=== PATIENT | female | born 1970 | race Hispanic/Latino ===

== ENCOUNTER 2018-11-06 16:49 | Observation (INO) ==
[2018-11-06] MEDS ORDERED: ASPIRIN PO ONE (17:04)
[2018-11-06 17:45] LABS: URINE SOURCE CLEAN CATCH
--- NOTE | 2018-11-06 17:47 | Diag Imaging Result Doc PS360 ---
CHEST-PORTABLE - 11/06/2018 INDICATION: cp COMPARISON: 08/26/2017 FINDINGS: The lungs are normally expanded and clear. Heart size and mediastinal contours are normal. No pneumothorax or pleural effusion. IMPRESSION: Negative exam. Electronically signed by Izaiah Mandujano 11/06/2018 5:45 PM
--- NOTE | 2018-11-06 17:47 | PROVIDER DOCUMENTATION ---
HPI-Female /OB/Breast - General Chief Complaint: Female Stated Complaint: ON PERIOD FOR 3 WEEKS Time Seen by Provider: 11/06/18 17:27 Source: reports: patient Allergies/Adverse Reactions: Patient Allergies Allergy/AdvReac Type Severity Reaction Status Date / Time No Known Allergies Allergy Verified 11/06/18 17:40 Home Medications: Home Medication List Medication Instructions Recorded Confirmed Last Taken Type Amlodipine [Norvasc] 10 mg PO DAILY 08/26/17 11/06/18 Unknown History Iron Carbonyl/Ascorbic Acid 1 each PO BID #60 tablet 08/27/17 11/06/18 Unknown Rx [Icar-C] - History of Present Illness-Female /OB Nature of Presenting Problem: Patient is a 48 year old female with history of HTN and irregular perio ds who presents with persistent vaginal bleeding for past 3 weeks. Patient reports using 2-3 pads per day. Patient also reports intermittent vague substernal chest pain since yesterday. Currently chest pain free. Last chest pain was this am which lasted several seconds. Denies history of CAD. Does patient report she is ?: No Quality of Pain: reports: none Onset/Duration: reports: other (3 weeks) Context/Activities at Onset: reports: none Vaginal Symptoms: reports: abnormal bleeding, passing clots/tissue Vaginal Bleeding Amount: Medium/Moderate Urinary Symptoms: reports: no symptoms Similar Symptoms Previously?: Yes Recently seen or treated by another doctor?: No - LMP/ History Menstrual Status: irregular Review of Systems - Adult - REVIEW OF SYSTEMS - ADULT Constitutional: denies: chills, fever Eyes: reports: no symptoms reported Ears, Nose, Mouth & Throat: denies: throat pain Cardiovascular: reports: see HPI Respiratory: reports: shortness of breath Gastrointestinal: denies: abdominal pain, nausea, vomiting Genitourinary: reports: see HPI, other (vaginal bleeding) Musculoskeletal: reports: no symptoms reported Integumentary: reports: no symptoms reported Neurological: reports: no symptoms reported Psychiatric: reports: no symptoms reported Endocrine: reports: no symptoms reported Hematologic/Lymphatic: reports: see HPI. denies: blood clots, easy bruising, low blood count, transfusions Allergic/Immunologic: reports: no symptoms reported All Other Systems: Reviewed and Negative Past History - Adult - PAST MEDICAL HISTORY-ADULT Review of Records: reports: Old Records Reviewed, Nursing Assessment Review, Medications Reviewed, Social history reviewed & non-contributory. Major Childhood Illnesses: reports: denies history Cardiovascular: reports: HTN. denies: CAD Gastrointestinal: reports: denies history Genitourinary: reports: denies history Musculoskeletal: reports: denies history Neurological: reports: denies history Psychiatric: reports: anxiety Endocrine/Immune: reports: denies history Other Conditions: reports: denies history - PRIOR SURGERIES/PROCEDURES Surgical/Procedure History: reports: none - IMMUNIZATION STATUS Childhood Immunizations: See Nurse Assessment Flu Vaccine: See Nurse Assessment - FAMILY HISTORY Family History: reviewed, not pertinent - SOCIAL HISTORY Smoking: denies Substance Use: denies Alcohol Use Frequency: occasionally Physical Exam-General - PHYSICAL EXAM-ADULT Initial Vital Signs Reviewed: Yes - CONSTITUTIONAL General Appearance: alert, other (appears pale, nondiaphoretic) - EYES Eyes: other (clear, pale mucosa) - HEAD, EARS, NOSE, MOUTH & THROAT HENMT: moist mucous membranes, normal ENT inspection - NECK Neck: non-tender, full range of motion, supple - RESPIRATORY Respiratory: chest non-tender, lungs clear, normal breath sounds, no pleuratic chest pain, no respiratory distress - CARDIOVASCULAR Cardiovascular: regular rate, rhythm - GASTROINTESTINAL (ABDOMEN) Abdominal Exam: normal bowel sounds, non tender, soft - GENITOURINARY Female Genitalia/Pelvic Exam: external exam normal, other (no active bleeding) - MUSCULOSKELETAL Back Exam: normal inspection, no CVA tenderness Extremity: normal range of motion, non-tender Peripheral Pulses: radial (R): 2+, radial (L): 2+ - SKIN Integumentary: normal turgor, warm/dry, pallor - NEUROLOGIC Neurologic: grossly normal, no motor/sensory deficits - PSYCHIATRIC Psych/Mental Status: anxious Progress - PLAN OF CARE/RESULTS Progress/Plan/Lab Results: Vital Signs - 8 hr 11/06/18 17:02 Temperature 98.0 F Pulse Rate 87 Respiratory Rate 18 Blood Pressure 130/68 O2 Sat by Pulse Oximetry 100 Bedside Urine ED: Urine Bedside Start: 11/06/18 17:05 Freq: ORDERED Status: Active Protocol: Activity Type Activity Date Activity User E-Sign Co-Sign Detail Recorded Client Recorded Date Recorded By Document 11/06/18 17:35 [id number] 11/06/18 17:36 [id number] 11/06/18 17:35 Point of Care [Bedside Point of Care] -Lot # [id number] - Results Negative -Control Line Visible? Yes Laboratory Results - last 24 hr 11/06/18 11/06/18 11/06/18 17:20 17:20 17:20 WBC 6.55 RBC 2.74 L Hgb 3.9 L* Hct 15.0 L MCV 54.7 L MCH 14.2 L MCHC 26.0 L RDW Std Deviation 21.3 H Plt Count 488 H MPV 9.1 Immature Gran % (Auto) 0.0 Neut % (Auto) 58.6 Lymph % (Auto) 30.2 [place] % (Auto) 9.2 Eos % (Auto) 1.2 Baso % (Auto) 0.8 Immature Gran # (Auto) 0.00 Neut # (Auto) 3.84 Lymph # (Auto) 1.98 [place] # (Auto) 0.60 H Eos # (Auto) 0.08 Baso # (Auto) 0.05 Segmented Neutrophils Not Reportable PT INR PTT (Actin FS) Sodium 134 L Potassium 3.5 Chloride 101 Carbon Dioxide 22 L Anion Gap 11 BUN 11 Creatinine 0.6 Estimated GFR/1.73 m2 > 60 BUN/Creatinine Ratio 18 Glucose 144 H Calculated Osmolality 270 Calcium 8.3 L Total Bilirubin 0.40 AST 18 ALT 12 Alkaline Phosphatase 83 Creatine Kinase 202 H Creatine Kinase Index 2.9 H CK-MB (CK-2) 5.82 H Troponin T Fwg-U-Yspgibrgryy Pept 95 Total Protein 7.2 Albumin 3.7 Globulin 4.0 Albumin/Globulin Ratio 1.0 Urine Source Urine Color Urine Clarity Urine pH Ur Specific [place] Urine Protein Urine Ketones Urine Blood Urine Nitrite Urine Bilirubin Urine Urobilinogen Urine WBC Urine Glucose 11/06/18 11/06/18 11/06/18 17:20 17:20 17:31 WBC RBC Hgb Hct MCV MCH MCHC RDW Std Deviation Plt Count MPV Immature Gran % (Auto) Neut % (Auto) Lymph % (Auto) [place] % (Auto) Eos % (Auto) Baso % (Auto) Immature Gran # (Auto) Neut # (Auto) Lymph # (Auto) [place] # (Auto) Eos # (Auto) Baso # (Auto) Segmented Neutrophils PT 14.1 INR 1.04 PTT (Actin FS) 31.1 Sodium Potassium Chloride Carbon Dioxide Anion Gap BUN Creatinine Estimated GFR/1.73 m2 BUN/Creatinine Ratio Glucose Calculated Osmolality Calcium Total Bilirubin AST ALT Alkaline Phosphatase Creatine Kinase Creatine Kinase Index CK-MB (CK-2) Troponin T < 0.010 Voq-H-Tftobjmgldk Pept Total Protein Albumin Globulin Albumin/Globulin Ratio Urine Source CLEAN CATCH Urine Color YELLOW Urine Clarity CLEAR Urine pH 6.5 Ur Specific [place] 1.005 Urine Protein NEGATIVE Urine Ketones NEGATIVE Urine Blood 4+ Urine Nitrite NEGATIVE Urine Bilirubin NEGATIVE Urine Urobilinogen NORMAL Urine WBC NEGATIVE Urine Glucose NEGATIVE Orders Category Date Time Status Admit - [facility] Routine AdmDCTranf 11/06/18 18:24 Active Activity - Strict Bedrest ORDERED Care 11/06/18 18:24 Active Cardiac Monitoring DIRECTED Care 11/06/18 17:04 Completed Misc. NRSG Communication Order DIRECTED Care 11/06/18 18:28 Active Orthostatic Vital Signs NOW Care 11/06/18 18:42 Active Orthostatic Vital Signs Q12-HR ASSESS Care 11/06/18 18:42 Active Resuscitation Status Routine Care 11/06/18 18:24 Ordered SCD/ZOEY Application [Apply Mechanical Device] [QM] Care 11/06/18 18:47 Active ORDERED Transfuse .Give-Transfuse Care 11/06/18 18:29 Active UA [ED: Urine Bedside] ORDERED Care 11/06/18 17:05 Active Vital Signs Order Q 4-HR ASSESS Care 11/06/18 18:24 Active Z-Document. for Tele Applied ORDERED Care 11/06/18 18:27 Active NPO Diet 11/06/18 18:25 Active CHEST-PORTABLE [RAD] Stat Exams 11/06/18 17:29 Completed US TRANSVAGINAL NON-OB [US] Stat Exams 11/06/18 18:35 Ordered CBC WITH ELECTRONIC DIFF [HEME] Stat Lab 11/06/18 17:20 Completed CK PROFILE [SP CHEM] Stat Lab 11/06/18 17:20 Completed COMPREHENSIVE METABOLIC PANEL [CHEM] Stat Lab 11/06/18 17:20 Completed OCCULT BLOOD SCREEN STOOL PL Routine Lab 11/06/18 18:34 Uncollected PRBC [LRPC (RED CELLS)] [BBK] Stat Lab 11/06/18 17:20 Received PRO B-NATRIURETIC PEPTIDE Stat Lab 11/06/18 17:20 Completed PROTIME WITH INR [COAG] Stat Lab 11/06/18 17:20 Completed PTT [COAG] Stat Lab 11/06/18 17:20 Completed TROPONIN T Stat Lab 11/06/18 17:20 Completed TYPE & SCREEN [BBK] Stat Lab 11/06/18 17:20 Received UA [URINALYSIS DIPSTICK ONLY PL] [URINALYSIS] Stat Lab 11/06/18 17:31 Completed Aspirin Med 11/06/18 17:04 Discontinued 325 mg PO NOW ONE Oxygen Device Stat Oth 11/06/18 18:05 Active Telemetry [OM.EQ] Routine Oth 11/06/18 18:24 Active EKG [EKG] Stat Ther 11/06/18 17:04 Draft Transfer/Admit Order [TRANSFER] Routine Transfer 11/06/18 18:27 Ordered Result Diagrams: 11/06/18 17:20 11/06/18 17:20 - EKG 1 Time of EKG reading by physician:: 17:14 EKG Read and Signed by:: Pedrito Joseph EKG Interpretation (*Must complete 3 of following elements*): Normal Rate: 80 Rhythm: NSR [place]: normal QRS: normal NE Interval: normal ST Wave: normal - CONSULTS/PCP/HOSPITALIST Notification #1 *Consult/PCP/Hospitalist*: Dr. Conroy, hospitalist Time Discussed: 18:10 Consult Disposition: Admit Departure - Departure Date of Disposition Decision: 11/06/18 Time of Disposition Decision: 19:03 DIAGNOSIS: Dysfunctional uterine bleeding Profound anemia Qualifiers: Anemia type: unspecified type Qualified Code(s): D64.9 - Anemia, unspecified Disposition: ADMITTED INPATIENT 09 Certified Medical Emergency: Emergent Condition: Stable Referrals and Follow-Ups: Tanesha Solis CRNP [Primary Care Provider] - - Critical Care Note This patient required my direct & personal management of CC.: Yes Total Time (mins): 91 Critical Care Statement: This patient required my direct personal management to treat or rule out processes, the absence of which, could potentiallly result in sudden, clinically significant life or limb threatening deterioration. Attestation - Physician/ LOBITO Attestation Patient care was provided by Advanced Practice Provider:: No The physician spent face to face time with patient:: Yes Advanced Practice Provider documentation review:: Supervising physician onsite and consulted in the evaluation and care of this patient. The physician did have a face to face encounter with the patient.
[2018-11-06 17:58] LABS: INR 1.04; PROTIME 14.1 Seconds (11.0-16.0)
[2018-11-06 17:59] LABS: PTT 31.1 Seconds (22.3-41.8)
[2018-11-06 18:00] LABS: AGAP 11; ALBUMIN 3.7 g/dL (3.5-5.0); ALKALINE PHOSPHATASE 83 U/L (32-104); BUN 11 mg/dL (8-22); CALCIUM 8.3 mg/dL (8.8-10.2); CHLORIDE 101 mmol/L (98-107); COSMO 270; CREATININE 0.6 mg/dL (0.5-0.9); ESTIMATED GFR > 60; GLUCOSE 144 mg/dL (70-104); GOT 18 U/L (10-30); GPT 12 U/L (10-36); POTASSIUM 3.5 mmol/L (3.5-5.1); RBC 2.74 XMIL (4.2-5.4); SODIUM 134 mmol/L (136-145); TCO2 22 mmol/L (25-35); TOTAL PROTEIN 7.2 g/dL (6.3-8.3); WBC 6.55 X1000 (4.8-10.8)
[2018-11-06 18:01] LABS: BASO# 0.05 X1000 (0.0-0.2); BASO% 0.8 % (0.0-0.8); EOS# 0.08 X1000 (0.0-0.7); EOS% 1.2 % (0.0-10.0); LYMPH# 1.98 X1000 (1.2-3.4); LYMPH% 30.2 % (20.5-51.1); MCH 14.2 PG (27-31); MCV 54.7 FL (81-99); MONO% 9.2 % (1.7-9.3); MPV 9.1 FL (7.4-10.4); NEUT# 3.84 X1000 (1.4-6.5); NEUT% 58.6 % (42.2-75.2); PLT 488 X1000 (130-400); RDW 21.3 % (11.5-14.5)
[2018-11-06 18:03] LABS: HEMOGLOBIN 3.9 g/dL (12.0-16.0)
--- NOTE | 2018-11-06 18:05 | EKG Report ---
Test Performed on : 11/06/2018 5:13:45 PM Test Reason : cp Blood Pressure : / mmHG Vent. Rate : 080 BPM Atrial Rate : 080 BPM P-R Int : 136 ms QRS Dur : 076 ms QT Int : 392 ms P-R-T Axes : 056 033 032 degrees QTc Int : 452 ms Normal sinus rhythm. Normal ECG When compared with ECG of 26-AUG-2017 16:48, No significant change was found Unconfirmed Result
--- NOTE | 2018-11-06 18:06 | ED EKG INTERP ---
This chart was entered by Audelia Garcia Scribe, acting as scribe for Pedrito Joseph MD. EKG Interpretation - EKG Time of EKG reading by physician:: 17:56 EKG Read and Signed by:: Pedrito Joseph EKG Interpretation (*Must complete 3 of following elements*): Normal Rate: 80 Rhythm: normal sinus rhythm [place]: normal QRS: normal Attestation - Physician/ LOBITO Attestation Patient care was provided by Advanced Practice Provider:: No The physician spent face to face time with patient:: Yes Advanced Practice Provider documentation review:: Supervising physician onsite and consulted in the evaluation and care of this patient. The physician did have a face to face encounter with the patient. This chart was documented by the indicated scribe, (Audelia Garcia Scribe) and accurately reflects the services I performed and decisions made by me, Pedrito Joseph MD, as attested by the provider's signature.
[2018-11-06 18:13] LABS: BILIRUBIN URINE NEGATIVE (NEGATIVE); BLOOD URINE 4+ (NEGATIVE); CLARITY CLEAR (CLEAR); COLOR YELLOW; GLUCOSE URINE NEGATIVE (NEGATIVE); KETONE URINE NEGATIVE (NEGATIVE); LEUKOCYTES URINE NEGATIVE (NEGATIVE); NITRITE URINE NEGATIVE (NEGATIVE); PH URINE 6.5; PROTEIN URINE NEGATIVE (NEGATIVE); SP GRAVITY URINE 1.005; UROBILINOGEN URINE NORMAL
[2018-11-06 18:25] LABS: CK PROFILE 202 U/L (24-173)
[2018-11-06 18:41] LABS: CK INDEX 2.9 (0.0-2.5); CK-MB 5.82 ng/mL (0.0-5.0)
--- NOTE | 2018-11-06 19:22 | HISTORY AND PHYSICAL ---
CHIEF COMPLAINT: Vaginal bleeding. HISTORY OF PRESENT ILLNESS: This is a 48-year-old female with a prior history of dysfunctional uterine bleeding, multi fibroid uterus with thickened endometrial stripe, symptomatic anemia. She presents to the ER complaining of 3 weeks of heavy irregular periods. She states that she is using 2 to 3 pads a day. She stated that along with that some intermittent substernal chest pressure, shortness of breath and orthostasis. She states that she went about 3 or 4 months without having a period, then periods started and has not stopped. She reports using 2 to 3 pads per day during these 3 weeks. The patient has a history of vaginal bleeding, being admitted on 08/26/2017 and at that time having a hematocrit of 17. She was transfused 2 units of packed cells and she was evaluated by Dr. Kizzy Brown. She was found then to have a multi fibroid uterus with thickened endometrial stripe. Dr. Brown had recommended that she follow up with her on an outpatient basis as well as be evaluated by GI because she felt the bleeding was too light in the setting of the significant anemia. The patient states that she did not follow up with Dr. Brown nor GI nor any other access service representative. PAST MEDICAL HISTORY: Hypertension, dysfunctional uterine bleeding. PAST SURGICAL HISTORY: None. SOCIAL HISTORY: She denies alcohol, tobacco or illicit drug use. ALLERGIES: No known drug allergies. HOME MEDICATIONS: Norvasc 10 mg p.o. daily. REVIEW OF SYSTEMS: Discussed with patient with pertinent positives stated in the HPI. She denied any syncope, any PND, orthopnea, any shortness of breath, any nausea, vomiting, diarrhea, constipation, black or bloody vomitus or stools, any hematuria, dysuria, frequency, urgency. PHYSICAL EXAMINATION: GENERAL: This is a 48-year-old female who is up sitting on the stretcher in the emergency room in no distress. VITAL SIGNS: Blood pressure is 130/68, with a heart rate of 87, respirations are 18, temperature is 98 degrees, room air sats are 100%. EYES: Pupils are equal, round, react to light. EOMs are intact. Sclerae are anicteric. HEENT: Head is normocephalic, atraumatic. Mucous membranes are moist. NECK: Supple, with trachea midline. CARDIOVASCULAR: Regular rate and rhythm. S1 and S2 appreciated. She has no murmur. No lower extremity edema. Calves are nontender bilateral with peripheral pulses palpable x 4 extremities. PULMONARY: Breath sounds are clear with no increased work of breathing noted. Chest rises and falls symmetric with respiration. Chest wall is nontender to palpation. GASTROINTESTINAL: Abdomen is soft, nontender, nondistended with bowel sounds in all 4 quadrants. GENITOURINARY: She has no CVA nor suprapubic tenderness. NEUROLOGIC: She is alert and oriented x3. SKIN: Pale, warm and dry. LABS: WBC is 6.5 with hemoglobin 3.9, hematocrit 15, and platelets of 488,000. Sodium 134, potassium 3.5, BUN 11, creatinine 0.62, glucose of 144. CPK is 202. Voided clean-catch urine specimen reveals 4+ blood, otherwise negative. ASSESSMENT AND PLAN: 1. Symptomatic anemia. The patient will be admitted to the hospital. We will place her on telemetry. We will transfuse 4 units of packed cells over 4 hours each. Repeat a CBC after the last transfusion. 2. Chest pressure. This is very likely due to her profound anemia. She will be placed on telemetry and will monitor. 3. History of irregular menstrual bleeding with noncompliance and followup. We will consult Dr. Farnsworth who is production consultant for CALCULATION REVIEWER today. 4. Question of GI bleed. On 08/26/[address] Kizzy Brown felt that the patient's amount of vaginal bleeding and significant anemia. Consult Dr. Kizzy Brown felt that GI evaluation for colonoscopy was indicated given the light nature of bleeding and significant anemia. The patient did not follow up as she reports 2 to 3 pads a day for 3 weeks. In the setting of hemoglobin and hematocrit of 3.9 and 15, we will occult her stools and we will follow her. I did speak with the patient of the importance of following up with GI as previously advised. 5. Hypertension. We will identify her home medications and continue these. 6. Myometrial masses most likely uterine fibroids per transvaginal ultrasound August 26. We will repeat a transvaginal ultrasound. Of course, for DVT prophylaxis we will use SCDs and GI prophylaxis will use Prilosec. 7. Further treatments pending hospital course and discussion with Dr. Conroy. Dictated by MARLYN Cuello for Lico Conroy MD cc: MARLYN Cuello MD
--- NOTE | 2018-11-06 20:15 | HISTORY AND PHYSICAL ---
HISTORY AND PHYSICAL - ADDENDUM: Patient seen and examined by myself. Full note dictated and discussed with nurse practitioner. HISTORY OF PRESENT ILLNESS: The patient is a 48-year-old female who has a history of dysfunctional uterine bleeding. She was seen previously by Dr. Brown. She has continued to have dysfunctional uterine bleeding in the ER. Hemoglobin and hematocrit has continued to drop. Certainly, I feel she has an aspect of iron deficiency. It appears as though she failed to follow up outpatient with GI to rule out any other sources of bleeding. Dr. Farnsworth has been consulted today and has agreed to see her tonight in consultation. We will type, cross and transfuse. She currently is undergoing a vaginal ultrasound. cc: Lico Conroy MD
[2018-11-06] MEDS ORDERED: NS 250 ML ONE (20:32)
--- NOTE | 2018-11-06 20:37 | Diag Imaging Result Doc PS360 ---
US PELVIC NON-OB COMPLETE - 11/06/2018 INDICATION: anemia, irregular menstrual bleeding TECHNIQUE: COMPARISON: 08/26/2017 FINDINGS: There is a hypoechoic mass in the uterine cervix. This measures 3 x 2.6 cm. There are otherwise heterogeneous masses throughout the myometrium. Endometrial stripe thickness is 1 cm. The uterus is enlarged. The uterus measures 10.3 x 8.1 x 6.4 cm. The ovaries are normal. The right ovary measures 3.5 x 3.1 x 2.9 cm. The left ovary measures 2.4 x 1.6 x 2.1 cm. There are several nabothian cysts in the uterine cervix. IMPRESSION: 1. Suspicious mass in the uterine cervix. Cervical cancer is suspected. Recommend DIRECTOR OF SURGERY consultation. 2. Several fibroids throughout the uterus. Enlarged uterus. 3. Normal-appearing ovaries. Electronically signed by Izaiah Mandujano 11/06/2018 8:35 PM
[2018-11-06] MEDS ORDERED: NS 250 ML IV ONE (20:43)
[2018-11-06] MEDS: ICAR-C PO SCH (23:13)
--- NOTE | 2018-11-07 04:09 | CONSULTATION ---
DATE OF CONSULTATION: 11/06/2018 REASON FOR CONSULTATION: Vaginal bleeding with severe anemia. HISTORY OF PRESENT ILLNESS: The patient is a 48-year-old female, G4, P3, A1 who presents with a month-long history of vaginal bleeding, heavy. She has had this happen before a year ago where she required transfusion, however, she did not follow up after her transfusion. The patient reports that she does not know the last time she saw a PAYROLL ASSISTANT. PAST MEDICAL HISTORY: Significant for high blood pressure. PAST SURGICAL HISTORY: D and C. PAST OB HISTORY: G4, P3, A1. Spontaneous vaginal delivery x3. Spontaneous AB x1. PAYROLL ASSISTANT HISTORY: Menarche at age 13. FAMILY HISTORY: Unremarkable. REVIEW OF SYSTEMS: Patient complains of migraines. SOCIAL HISTORY: Tobacco use: None. Alcohol use: None. MEDICATIONS: Blood pressure medicine prescribed by . ALLERGIES: No known drug allergies. PHYSICAL EXAMINATION: Vital Signs: Height 5 feet 3 inches, weight 131 pounds. Temperature 98.0, blood pressure 130/68, pulse 87, respirations 20. HEENT: Pupils equal, round, reactive to light and accommodation. Extraocular movements intact. Oropharynx clear. Neck: Supple. No thyromegaly. Lungs: Clear to auscultation. Heart: Regular rate and rhythm. Abdomen: Bowel sounds positive. Soft. Patient with a noticeable enlarged uterus, but nontender. Pelvic exam: External genitalia was normal in appearance. No lesions. Sterile speculum exam revealed vaginal mucosa pink, moist, rugated. Cervix was identified and appeared normal, but enlarged, but no fungating mass or polyp could be seen. On bimanual examination, uterus was mildly enlarged, roughly 10 to 12 weeks in size, mobile. Adnexal were free of masses and free of pain bilaterally. Extremities: No clubbing, cyanosis, or edema noted. Neurologic: Cranial nerves 2-12 grossly intact. Motor 5 out of 5. DATA: Ultrasound was performed and it showed numerous fibroids and there was a suspicious area on the cervix, a hypoechoic area and her adnexa was normal on ultrasound. On CBC her white count was 6.5, hemoglobin was 3.9, hematocrit was 15.0, platelet count was 488,000. Her MCV was noted to be 54.7, denoting a chronic long-term anemia. ASSESSMENT AND PLAN: A 48-year-old female, G4, P3, A1, with vaginal bleeding which she was not heavy at the time of exam and severe anemia. The patient is being transfused at the present time, and I would recommend that the patient, once she is stabilized, that we have her come to the office for a Pap smear and endometrial biopsy for further evaluation. We will follow for the present time. cc: Avery Farnsworth III, MD MTDD
[2018-11-07] MEDS ORDERED: PRILOSEC PO SCH (07:00)
[2018-11-07] MEDS: ICAR-C PO SCH (08:30)
[2018-11-07] MEDS ORDERED: NORVASC PO SCH (09:00)
[2018-11-07 10:29] LABS: BASO# 0.11 X1000 (0.0-0.2); BASO% 1.3 % (0.0-0.8); EOS# 0.14 X1000 (0.0-0.7); EOS% 1.7 % (0.0-10.0); HEMATOCRIT 33.4 % (37.0-47.0); HEMOGLOBIN 11.1 g/dL (12.0-16.0); IMM GRAN# 0.11 X1000 (0.0-0.04); IMM GRAN% 1.3 % (0.0-0.5); LYMPH% 19.1 % (20.5-51.1); MCH 22.3 PG (27-31); MCHC 33.2 g/dL (33-37); MCV 67.2 FL (81-99); MONO# 0.99 X1000 (0.11-0.59); MONO% 11.8 % (1.7-9.3); MPV 9.3 FL (7.4-10.4); NEUT# 5.41 X1000 (1.4-6.5); NEUT% 64.8 % (42.2-75.2); PLT 432 X1000 (130-400); RBC 4.97 XMIL (4.2-5.4); WBC 8.36 X1000 (4.8-10.8)
[2018-11-07 10:36] LABS: AGAP 12; BUN 6 mg/dL (8-22); CALCIUM 8.9 mg/dL (8.8-10.2); CHLORIDE 103 mmol/L (98-107); COSMO 271; CREATININE 0.4 mg/dL (0.5-0.9); ESTIMATED GFR > 60; GLUCOSE 88 mg/dL (70-104); POTASSIUM 4.1 mmol/L (3.5-5.1); SODIUM 137 mmol/L (136-145); TCO2 22 mmol/L (25-35)
[2018-11-07 11:09] VITALS: BP 139/78
--- NOTE | 2018-11-07 14:28 | Diag Imaging Result Doc PS360 ---
EXAM: CT THORAX/ABD/PELVIS W/CON HISTORY: cervical cancer, r/o mets TECHNIQUE: 1. CT chest with intravenous contrast 2. CT abdomen and pelvis with intravenous contrast COMPARISON: Abdomen pelvis compared to 08/26/2017 FINDINGS: Chest: No pleural effusions. No thoracic aortic aneurysm or dissection. No enlarged lymph nodes. The heart is mildly prominent. There are no infiltrates. Tiny vague nodular density posteriorly in the left lower lobe on image 42. No other parenchymal nodule. Pelvis: There is a large cyst in the left lobe of liver measuring 9 cm. There is also fatty patient of the liver. Spleen is not enlarged. Normal gallbladder, pancreas, adrenal glands, and kidneys. Normal aorta. The uterus is enlarged containing multiple mixed density nodules measuring up to 4.5 cm. There are multiple cysts in the cervix the appearance is fairly similar to the prior exam. The urinary bladder is distended and is normal. No bowel obstruction although there is stool throughout the colon. Normal appendix. No abscess. No ascites. IMPRESSION: Chest: Single tiny density in the left lower lobe. This does not have a suspicious appearance. Abdomen and pelvis: Enlarged uterus with multiple masses consistent with fibroids. There is also a large hepatic cyst and there is constipation. This exam was performed using automated exposure control, adjustment of mA or kV according to patient size, and/or use of iterative reconstruction technique. Electronically signed by Andrew Beauchamp 11/07/2018 2:26 PM
--- NOTE | 2018-11-07 20:52 | DISCHARGE SUMMARY ---
ADMISSION DATE: 11/06/2018 DISCHARGE DATE: 11/07/2018 PRIMARY CARE PROVIDER: MARLYN Cordero. ADMISSION DIAGNOSES: 1. Symptomatic anemia. 2. Chest pressure likely due to her profound anemia. 3. History of irregular menstrual bleeding with noncompliance in followup. 4. A question of gastrointestinal bleed. 5. Hypertension. 6. Myometrial masses most likely uterine fibroids per vaginal ultrasound on October 26. DISCHARGE DIAGNOSES: 1. Profound anemia, resolved. 2. Chest pressure likely due to her profound anemia, resolved. 3. History of irregular menstrual bleeding with noncompliance in followup. 4. Hypertension. 5. Suspicious mass in the uterine cervix per her pelvic non obstetric ultrasound. SUMMARY OF FINDINGS: This is a 48-year-old female who presented to the emergency room with 3 weeks of heavy irregular periods. States she is using 2 to 3 pads a day, had some intermittent substernal chest pressure, shortness of breath and orthostasis. She went 3 to 4 months previously without having a period then the period started and have not stopped. She has a history of vaginal bleeding and was admitted on 08/26/2017 having hematocrit of 17, was transfused at that time with 2 units packed red blood cells, evaluated by Dr. Brown, was found to have multi fibroid uterus and thickened endometrial stripe. Recommended that she follow up as an outpatient and with GI because she felt the bleeding was too light in the setting of the significant anemia. She did not follow up with GI or with Dr. Brown so now her hemoglobin and hematocrit on arrival was 3.9 and 15. She received 3 units of packed red blood cells and 1 unit of pheresed red blood cells, hemoglobin and hematocrit came up to 11.1 and 33.4. Her pelvic ultrasound showed suspicious mass in the uterine cervix. Cervical cancer is suspected. Recommend [facility] consultation. Several fibroids throughout the uterus and enlarged uterus but normal appearing ovaries. We did consult [facility] who wanted to follow up with her on an outpatient basis and recommended a Pap smear and endometrial biopsy at that time so it is felt now that she can safely be discharged home to follow up with [facility] on 11/14/2018 at 2 p.m., she will need to follow with her primary care physician in the next 1 to 2 weeks and call their office for an appointment. DISCHARGE MEDICATIONS: No medications new. She will continue her Norvasc 10 mg p.o. daily and Icar-C 1 p.o. b.i.d. All discharge instructions have been reviewed with the patient and she verbalized understanding. TIME SPENT: 33 minutes. Dictated by MARLYN Abbott for Saurabh Perez MD Addendum: Patient seen and examined by myself. Agree with MARLYN note. It reflects my assessment and plan. Patient is being discharged in stable condition. Will be seen by [facility] doctor for further work up and Pap smear in the office within a week. cc: MARLYN Cordero MD [facility]
== END 2018-11-07 15:03 | disposition home or self-care (01) ==
LOC: P.ED 16:49 → SUATTDRO 20:47 → P.MEDSURG 20:47 → INTOOBSV 20:47
PROVIDERS: ATTEND Internal Medicine
CPT/HCPCS: 36430; 71010; 71045; 71260; 74177; 76856; 80048; 80053; 81003; 82550; 82553; 83880; 84484; 85025; 85610; 85730; 86850; 86900; 86901; 86920; 93005; 94761; A9270; J7050; P9016; Q9967